=== PATIENT | female | born 2005 | race Two or more races ===

== ENCOUNTER 2024-02-05 17:07 | Emergency (ER) | payer BC, SELFPAY ==
--- NOTE | 2024-02-05 | ECG_ITS ---
Test Reason : CHEST PAIN Blood Pressure : / mmHG Vent. Rate : 126 BPM Atrial Rate : 126 BPM P-R Int : 138 ms QRS Dur : 082 ms QT Int : 306 ms P-R-T Axes : 080 101 042 degrees QTc Int : 443 ms Sinus tachycardia Possible Left atrial enlargement Possible Anterolateral infarct , age undetermined Abnormal ECG No previous ECGs available Referred By: Generic ED Physician Electronically Signed By:MEREDITH DELACRUZ MD
--- NOTE | ~2024-02-05 | XR_ITS ---
EXAMINATION: XR CHEST CLINICAL INFORMATION: Chest pain COMPARISON: None available. TECHNIQUE: 2 views of the chest were obtained. FINDINGS: No significant abnormality is noted involving the heart, lungs, mediastinum, or soft tissues. Scoliosis of the thoracolumbar spine. XR/XR chest 2V IMPRESSION: No acute disease.
--- NOTE | 2024-02-05 17:22 | ED.GENADULT ---
HPI - General Adult General Chief complaint: Chest Pain Stated complaint: chest pain Time Seen by Provider: 02/05/24 19:33 Source: patient Mode of arrival: ambulatory Limitations: no limitations History of Present Illness HPI narrative: 18-year-old female history of scoliosis, depression, mood disorder, anxiety, ADD who presents emergency department for evaluation of chest pain, shortness of breath, rapid heart rate/palpitations, numbness, lightheadedness. Patient states that she has not been feeling well since Tuesday01/30/2027 (5 days prior to evaluation). She states that she has been feeling short of breath and has been having a sharp pressure-like sensation in her sternal area she states that she will feel like her heart beats fast on and off. She states that she feels short of breath, lightheaded and dizzy. She states that prior to coming to the emergency department she felt like her face hands and feet were numb. Patient states she did have a sore throat several days prior took ibuprofen with resolution of the symptoms. Patient states that she has a sophomore at [employer] and she has been under increased stress but could not name a specific stressor. She states she does have a mood disorder and does feel depressed. She denied being suicidal or homicidal. She states she did try to hurt herself a year ago but does not want to go into details regarding this incident. Patient has been compliant with her medications. She denied fever, chills, rhinorrhea, cough, nausea, vomiting or diarrhea. Patient does not take oral control pills but does have an IUD. She states she did travel to [place] over spring 1 week prior. She denied any pain or swelling in her lower extremities. Related Data Previous Rx's Medication Instructions Recorded hydroxyzine HCl 25 mg tablet 25 mg PO TID PRN anxiety #15 tabs 02/05/24 Allergies Allergy/AdvReac Type Severity Reaction Status Date / Time No Known Allergies Allergy Verified 02/05/24 17:22 Review of Systems Review of Systems: Yes all other systems are reviewed and are negative [facility] Past Medical History [facility] Narrative: Social history: The patient is a sophomore at [employer]. She occasionally vapes nicotine products. Occasionally drinks alcohol. She denies drug use. Social History Social History Smoked in Last 30 Days: No Use of substances other than those prescribed or required for medical reasons: No Advance Directives: No Advance Directives Information Provided: No Patient : No Physical Exam ED Vital Signs: Vital Signs - 24 hr 02/05/24 17:24 Temperature 98.3 F Pulse Rate 117 H Respiratory Rate 20 Blood Pressure 133/85 Pulse Oximetry 100 Oxygen Delivery Method Room Air BMI result Body Mass Index 18.9 Vital signs revealed an elevated heart rate of 117 otherwise unremarkable. Exam: General: Awake, alert in no distress, low BMI of 18.9 Head: Normocephalic, atraumatic EENT: PERRL, Lids normal, sclera normal, conjunctiva normal, nose normal , ears normal, throat without erythema or exudates Neck: Supple, no adenopathy Lung: breath sounds symmetric, no wheezing, rales or rhonchi Chest: symmetric movement, nontender Heart: regular rate and rhythm, normal S1, S2 no murmurs or rubs Abdomen: soft, non-tender, nondistended, normal bowel sounds Back: no vertebral tenderness, no CVAT Extremities: no deformities, moves all extremities symmetrically Neuro: Awake, alert, oriented, normal speech, cranial nerves intact, moves all extremities symmetrically Psych: Pleasant, cooperative Course Course Course Narrative: This is an RME: Additional HPI, ROS, PE not included below will be deferred to primary provider. Patient is a 18-year-old female who presents to the emergency department for evaluation of 5 days with shortness of breath, mid chest pain described as tightness/ sharp, palpitations. Reports 1 day of sore throat 3 days ago, has since resolved. Reports that she feels as though she was going to pass out all day today. Denies possibility of reports a IUD in place. Denies any recent sick contacts, fevers, chills. Denies nausea or vomiting. Medications Administered Discontinued Medications Generic Name Dose Route Start Last Admin Trade Name Freq PRN Reason Stop Dose Admin Hydroxyzine HCl 25 mg 02/05/24 20:00 02/05/24 20:20 Hydroxyzine Hcl 25 Mg Tablet PO 02/05/24 20:01 25 mg ONCE ONE Administration Medical Decision Making Medical Decision Making [facility] Narrative: 18-year-old female with a history of scoliosis, mood disorder, depression, anxiety who has been having chest pain, shortness of breath, palpitations lightheadedness and dizziness times for 5 days. Patient's vital signs did reveal elevated heart rate. Physical examination was otherwise unremarkable Differential diagnosis: ?Includes but is not limited to palpitations, myocardial infarction, myocardial injury, hyperventilation syndrome, panic attack, electrolyte abnormalities, anemia, COVID-19, influenza, RSV Following evaluation was ordered:CBC, CMP, troponin, COVID-19, RSV, influenza, chest x-ray, EKG Patient was initially treated with the following: Hydroxyzine 25 mg orally Course: My independent interpretation patient's laboratory evaluation as follows: CBC and CMP were normal. High sensitive troponin I was below detectable limits. COVID-19, influenza and RSV were negative. Twelve EKG was consistent with sinus tachycardia Chest x-ray did reveal scoliosis which is a known condition for otherwise was unremarkable Patient's presentation is consistent with anxiety and hyperventilation syndrome/panic attack. Patient denies being suicidal or homicidal at this time. Patient will be discharged to home and I did advised to contact [facility] to get therapy and further management of her anxiety. She was given printed and verbal instructions and discharged home Admission/Observation Consideration of admission/observation: Escalation of care including admission/observation considered Lab Data [facility] Lab Attestation statement: I reviewed the patient's lab results. 02/05/24 17:44 02/05/24 17:44 Labs: Lab Results 02/05/24 Range/Units 17:44 WBC 8.0 (4.8-10.8) X10*3/uL RBC 4.32 (4.20-5.50) X10*6/uL Hgb 14.0 (12.0-16.0) g/dl Hct 39.9 (37.0-47.0) % MCV 92.4 (80.0-98.0) fL MCH 32.4 (27.0-33.0) pg MCHC 35.1 H (31.0-35.0) g/dl RDW 11.9 (11.0-16.0) % Plt Count 241 (160-400) X10*3/uL MPV 10.2 (9.4-12.3) fL Immature Gran % (Auto) 0.3 (0.0-0.4) % Neut % (Auto) 58.2 (45-73) % Lymph % (Auto) 32.8 (20-40) % [place] % (Auto) 6.2 (2-11) % Eos % (Auto) 1.9 (0-4) % Baso % (Auto) 0.6 (0-2) % Lymph # (Auto) 2.6 (1.2-4.9) X10*3/uL [place] # (Auto) 0.5 (0.1-1.2) X10*3/uL Eos # (Auto) 0.2 (0.0-0.4) X10*3/uL Baso # (Auto) 0.1 (0.0-0.2) X10*3/uL Abs Immat Gran (auto) 0.02 (0.00-0.03) X10*3/uL Absolute Neuts (auto) 4.6 (2.0-8.3) x10*3/uL Absolute Nucleated RBC 0.000 (0.0-0.012) X10*3/uL Nucleated RBC % (auto) 0.0 (0.0-0.2) /100WBC PT 12.2 (11.1-13.3) SEC INR 1.0 (0.9-1.1) Sodium 143 (135-145) mmol/L Potassium 3.9 (3.3-5.1) mmol/L Chloride 111 H (96-108) mmol/L Carbon Dioxide 22 (22-29) mmol/L Anion Gap 14 (12-20) BUN 18 H (9-16) mg/dL Creatinine 0.95 (0.5-1.4) mg/dL Estim Creat Clear Calc 76.9 Estimated GFR > 60 Random Glucose 104 (60-115) mg/dL Calcium 10.8 H (8.4-10.2) mg/dL Total Bilirubin 0.4 (0.0-1.0) mg/dL AST 18 (5-31) U/L ALT 9 (0-31) U/L Alkaline Phosphatase 87 (39-117) U/L Troponin I High Sens < 2.7 (<3.5-17.0) ng/L Total Protein 8.2 H (6.5-8.0) g/dL Albumin 5.2 H (3.5-5.0) g/dL Lipase 33 (8-78) U/L Beta HCG, Quant < 2 mIU/mL Influenza Type A (PCR) NEGATIVE (Negative) Influenza Type B (PCR) NEGATIVE (Negative) RSV RNA Qual (PCR) NEGATIVE (Negative) SARS-CoV-2 RNA (RT-PCR) NEGATIVE (Negative) S. pyogenes GrpA ROBINA Negative (Negative) Independent Interpretation I performed an independent interpretation of an: EKG and Plain X-Ray Interpretation: My independent interpretation patient's two view Chest x-ray is as follows: no acute process, patient does have scoliosis of the spine My interpretation patient's 12 EKG done at 17:12 hours is as follows: Sinus tachycardia with a rate of 126, normal OK interval, QRS duration QTC interval, no ST segment elevation, no ST segment depression, no PVCs, no PACs Radiology Impression Discussion of test interpretation with radiology: I have reviewed the radiologist's reading. Radiologist Impression: XR chest 2V FINDINGS: No significant abnormality is noted involving the heart, lungs, mediastinum, or soft tissues. Scoliosis of the thoracolumbar spine. IMPRESSION: No acute disease. Dictated By: Maria E Ayala MD Independent Historian Clinical information obtained from an independent historian. History obtained from or confirmed by: Other (Friend) Prescription Management I considered prescription management with: Other (Anti anxiolytic-hydroxyzine) Discharge Plan Discharge Clinical Impression: Acute hyperventilation syndrome, Anxiety attack Patient Disposition: Home, Self-Care Instructions: Hyperventilation (ED), Anxiety (ED) Additional Instructions: Your blood work today was normal. Your EKG did reveal a fast heart rate but otherwise was unremarkable. Your chest x-ray revealed no abnormalities except for your scoliosis, which is reassuring. Your numbness in your face, hands and feet, lightheadedness and dizziness is caused by the stress that your under and hyperventilation syndrome I am starting you on hydroxyzine 25 mg pills, 1 pill 3 times a day as needed for anxiety. Continue taking your other medications as prescribed by your providers. You should follow-up with [facility] to get therapy for your stress and anxiety and also to discuss other medications that may help with your symptoms. If you feel like you are going to hurt yourself or hurt others please call 911 and return to the emergency department and we can help you with these feelings. Follow-up with [facility] in 1-2 days. Please return to the emergency department if your symptoms get worse or if you develop any symptoms that are concerning to you. Prescriptions: New hydroxyzine HCl 25 mg tablet 25 mg PO TID PRN (Reason: anxiety) Qty: 15 0RF
[2024-02-05 17:24] VITALS: BP 133/85; PULSE 117; RESP 20; TEMP 36.8; O2SAT 100; BMI 18.9
[2024-02-05 17:50] LABS: MANUAL DIFF FLAG NO
[2024-02-05 17:52] LABS: Basophils Absolute Auto 0.1 X10*3/uL (0.0-0.2); Basophils Percent Auto 0.6 % (0-2); Eosinophils Absolute Auto 0.2 X10*3/uL (0.0-0.4); Eosinophils Percent Auto 1.9 % (0-4); Hematocrit 39.9 % (37.0-47.0); Imm Gran Abs Auto 0.02 X10*3/uL (0.00-0.03); Imm Gran Pct Auto 0.3 % (0.0-0.4); Lymphocytes Absolute Auto 2.6 X10*3/uL (1.2-4.9); Lymphocytes Percent Auto 32.8 % (20-40); Mean Corpuscular HGB Conc 35.1 g/dl (31.0-35.0); Mean Corpuscular Hemoglobin 32.4 pg (27.0-33.0); Mean Corpuscular Volume 92.4 fL (80.0-98.0); Mean Platelet Volume 10.2 fL (9.4-12.3); Monocytes Absolute Auto 0.5 X10*3/uL (0.1-1.2); Monocytes Percent Auto 6.2 % (2-11); Neutrophils Absolute Auto 4.6 x10*3/uL (2.0-8.3); Neutrophils Percent Auto 58.2 % (45-73); Platelet Count 241 X10*3/uL (160-400); Red Blood Count 4.32 X10*6/uL (4.20-5.50); Red Cell Distribution Width 11.9 % (11.0-16.0)
[2024-02-05 18:01] LABS: IDNOW Serial# 08D9AD1C; Strep A Nucleic Acid Negative (Negative)
[2024-02-05 18:03] LABS: Prothrombin Time 12.2 SEC (11.1-13.3)
[2024-02-05 18:15] LABS: Alanine Aminotransferase 9 U/L (0-31); Albumin Level 5.2 g/dL (3.5-5.0); Alkaline Phosphatase 87 U/L (39-117); Anion Gap 14 (12-20); Aspartate Amino Transferase 18 U/L (5-31); Bilirubin Total 0.4 mg/dL (0.0-1.0); Blood Urea Nitrogen 18 mg/dL (9-16); Calcium 10.8 mg/dL (8.4-10.2); Carbon Dioxide 22 mmol/L (22-29); Chloride 111 mmol/L (96-108); Creatinine Clr Calc Pharmacy 76.9; Estimated Glomerular Filt Rate > 60; Glucose Random 104 mg/dL (60-115); HCG Quantitative < 2 mIU/mL; Lipase 33 U/L (8-78); Potassium 3.9 mmol/L (3.3-5.1); Sodium 143 mmol/L (135-145); Total Protein 8.2 g/dL (6.5-8.0); Troponin-I High Sensitivity < 2.7 ng/L (<3.5-17.0)
[2024-02-05 18:35] LABS: Influenza A PCR NEGATIVE (Negative); Influenza B PCR NEGATIVE (Negative); Resp Syncy Virus RNA Qual PCR NEGATIVE (Negative); SARS COV2 PCR INHOUSE NEGATIVE (Negative)
[2024-02-05] MEDS: hydrOXYzine HCL 25 MG TABLET PO (20:20)
[2024-02-05 20:29] LABS: TSH reflex Free T4 2.87 uIU/mL (0.32-4.0)
[2024-02-05 20:58] VITALS: BP 105/73; PULSE 82; RESP 14; TEMP 36.8; O2SAT 100
== END 2024-02-05 20:58 | disposition home or self-care (01) ==
PROVIDERS: Nurse Practitioner Family; Emergency Provider Emergency Medicine Emergency Medical Services
DX: F45.8 Other somatoform disorders (principal); F41.9 Anxiety disorder, unspecified; Z03.818 Encounter for observation for suspected exposure to other biological agents ruled out
CPT/HCPCS: 0241U; 71046; 80053; 83690; 84443; 84484; 84702; 85025; 85610; 87651; 93005; 99283; 99284

== ENCOUNTER → 2024-02-05 17:12 | Outpatient (BNV) | payer BC, SELFPAY | PROVIDERS: Emergency Provider Emergency Medicine Emergency Medical Services; Visit Provider Internal Medicine Cardiovascular Disease | DX: R94.31 Abnormal electrocardiogram [ECG] [EKG] (principal) | CPT/HCPCS: 93010 ==